=== PATIENT | female | born 1975 | race Caucasian/White ===

== ENCOUNTER 2017-11-20 06:08 | Inpatient (IN) ==
[~2017-11-20 06:08] MED LIST: CefOXitin Inj 2 GM in Sodium Chloride 0.9% 100 ML IV ONE; LIDOCAINE W/ SODIUM BICARB 0.5 ML SYR ONE; LIDOCAINE W/ SODIUM BICARB 0.5 ML SYR SUBD ONE; Lactated Ringers 2,000 ML PRIMARY IV ONE; Sodium Chloride 0.9% 100 ML IV ONE
[2017-11-20 06:35] LABS: BILIRUBIN,URINE NEGATIVE (NEG); CLARITY,URINE CLEAR (CLEAR); COLOR,URINE YELLOW (Y); GLUCOSE, URINE (UA) NEGATIVE (NEG); OCCULT BLOOD,URINE NEGATIVE (NEG); PH,URINE >=9.0 (5.0-8.5); PROTEIN,URINE TRACE mg/dl (NEG); UROBILINOGEN,URINE 0.2 EU/dL (0.2)
[2017-11-20 06:37] LABS: URINE SAMPLE TYPE CLEAN CATCH URINE
[2017-11-20 06:39] LABS: URINE SPECIFIC GRAVITY - MAN 1.015
[2017-11-20] MEDS: Lactated Ringers 1,000 ML PRIMARY IV SCH ×2 (06:47→06:58)
[2017-11-20 06:52] LABS: Hematocrit [HCT] 41.3 % (37.0-47.0); Hemoglobin [HGB] 13.9 g/dL (12.0-16.0)
[2017-11-20] MEDS ORDERED: ROCURONIUM 10 MG/1 ML - 5 ML VIAL IVP ONE (07:12)
[2017-11-20] MEDS ORDERED: LIDOCAINE MPF 2% - 5 ML (20 MG/1 ML) ONE (07:14)
[2017-11-20] MEDS ORDERED: MIDAZOLAM 5 MG/1 ML ONE (07:14)
[2017-11-20] MEDS ORDERED: fentaNYL Inj 250 MCG/5 ML VIAL ONE (07:14)
[2017-11-20] MEDS ORDERED: PROPOFOL 10 MG/1 ML (200 MG/20 ML) VIAL IV ONE (07:14)
[2017-11-20] MEDS ORDERED: LIDOCAINE HCL 2 % 10 ML JELLY URO-JECT TOPICAL ONE ×2 (07:24→09:17)
[2017-11-20] MEDS ORDERED: BUPivacaine 0.5%/Epi Inj 50 ML VIAL ONE (07:24)
[2017-11-20] MEDS ORDERED: HYDROmorphone 2 MG/1 ML ONE ×2 (08:23→11:25)
[2017-11-20] MEDS ORDERED: Opium-Belladonna 60-16.2mg 1 EACH SUPP.RECT RECTAL ONE ×2 (08:43→12:10)
[2017-11-20] MEDS ORDERED: KETAMINE 100 MG/1 ML - 5 ML ONE (08:54)
[2017-11-20] MEDS ORDERED: Lactated Ringers 1,000 ML PRIMARY IV ONE ×3 (09:20→11:42)
[2017-11-20] MEDS ORDERED: ONDANSETRON 4 MG/2 ML VIAL ONE (09:36)
[2017-11-20] MEDS ORDERED: KETOROLAC 30 MG/1 ML VIAL ONE (09:36)
[2017-11-20] MEDS ORDERED: SUGAMMADEX SODIUM 200 MG/2 ML VIAL IV ONE (11:12)
[2017-11-20] MEDS ORDERED: FUROSEMIDE 10 MG/1 ML - 4 ML ONE (12:51)
[2017-11-20] MEDS ORDERED: Ondansetron ODT Tab 8 MG TAB PO PRN (13:07)
[2017-11-20] MEDS ORDERED: IBUPROFEN 800 MG TABLET PO PRN (13:07)
[2017-11-20] MEDS ORDERED: KETOROLAC 15 MG/1 ML VIAL IVP PRN (13:07)
[2017-11-20] MEDS ORDERED: NORMAL SALINE 10 ML SYRINGE FLUSH IVP PRN ×2 (13:07→13:17)
--- NOTE | 2017-11-20 13:14 | OB.OP.NOTE ---
Operative Report Surgeon: Dacia Certified Optician: Raheel Espino MD Anesthesia Type: General Anesthesia Provider: Son Li CRNA Surgery Date: 11/20/17 Preoperative Diagnosis: SPR/BRIE Postoperative Diagnosis: Same Procedure: Robotic Supracervical Hysterectomy/Bilateral Salpingectomy/Left Oophorectomy/TVT-O/Perineorrhaphy/Cystoscopy Estimated Blood Loss (mL): 150 Fluids: 4000 ml Complications: None identified. Findings at Surgery: Normal size uterus. Normal tubes. Right ovary with 2.5 cm follicular cyst. Left ovary with bivalved appearance. Large rectocele/enterocele. Cystocele. Uterine descent. The liver edge, stomach, visualized bowel, appendix, and pelvic peritoneum appeared normal. No visible evidence of bowel, bladder, or ureter injury. Good vaginal support without tension was achieved. Good placement of TVT mesh without tension was achieved. At cysto, both ureters ejected urine and the bladder was intact. Indications for the Procedure: SPR/BRIE Description of Procedure: See dictated operative report. Plan: 24 hour observation, then home.
[2017-11-20] MEDS ORDERED: ONDANSETRON 4 MG/2 ML VIAL IVP PRN (13:17)
[2017-11-20] MEDS ORDERED: LIDOCAINE W/ SODIUM BICARB 0.5 ML SYR SUBD PRN (13:17)
[2017-11-20] MEDS ORDERED: fentaNYL Inj 100 MCG/2 ML VIAL IVP PRN (13:17)
--- NOTE | 2017-11-20 13:29 | CRNA.PROGR ---
Anesthesia Recovery Phase I - Post Anesthesia Evaluation Patient's Condition on Arrival in Phase I: Stable Pain Level: 3
--- NOTE | 2017-11-20 13:30 | CRNA.PROGR ---
Anesthesia Time - - Start date: 11/20/17 End date: 11/20/17 - Procedure/Recovery Time Anesthesia : Time In: 07:49 Anesthesia : Time Out: 13:12 Anesthesia : Total Time: 323 - Total Anesthesia Time Total Anesthesia Time (minutes): 323 - Other Weight: 105.687 kg Height: 5 ft 8 in Body Mass Index (BMI): 35.4 Physical Status: P2 Anesthesia Type: General Anesthesia : ET
[2017-11-20] MEDS: HYDROmorphone 2 MG/1 ML IVP PRN ×2 (13:35→14:25)
[2017-11-20] MEDS: HYDROcodone-APAP 5 MG -325 MG TABLET PO PRN ×2 (16:05→20:43)
[2017-11-20 20:26] VITALS: RESP 18
[2017-11-20] MEDS: DOCUSATE 100 MG CAPSULE PO SCH (20:43)
[2017-11-21] MEDS: Lactated Ringers 1,000 ML PRIMARY IV SCH ×2 (00:50→13:06)
[2017-11-21] MEDS: HYDROcodone-APAP 5 MG -325 MG TABLET PO PRN ×4 (00:50→13:06)
[2017-11-21 07:18] VITALS: O2SAT 96
[2017-11-21] MEDS: DOCUSATE 100 MG CAPSULE PO SCH (08:41)
--- NOTE | 2017-11-21 08:41 | PDOC(PROG) ---
Subjective Post Op Day: 1 Pain Management: PO Meadows Catheter: Yes Flatus: Yes Diet: Regular Ambulating: Yes Concerns / Additional Information: The patient had a quiet night. She is having some discomfort which is well- managed with PO meds. Will remove meadows and verify bladder function before discharge. Assesstment / Plan Assessment / Plan: POD 1, doing well. Voiding trial, then home.
--- NOTE | 2017-11-21 08:43 | DCSUMMARY ---
Hospitalization Summary Admit Date: 11/20/17 Discharge Date: 11/21/17 Primary Diagnosis:: SPR/BRIE Hospital Course: Uncomplicated robotic hysterectomy/left oophorectomy/bilateral salpingectomy/ sacral colpopexy/TVT-O/and perineorrhaphy. Observed overnight. Discharge to home POD 1 in good condition. F/u 2 weeks. Exam - Vitals Vital Signs: Vital Signs Temperature 97.2 F Temperature Source Temporal Artery Scan Pulse Rate [Apical] 60 Pulse Rate [Pulse Oximeter] 63 Pulse Rate 55 Respiratory Rate 18 Blood Pressure [Right Arm] 110/72 Blood Pressure 121/78 Pulse Ox 96 Oxygen Flow Rate 1 Oxygen Delivery Method Nasal Cannula Height 5 ft 8 in Weight 241 lb
[2017-11-21 11:34] VITALS: BP 140/70; TEMP 97.4
== END 2017-11-21 15:15 | disposition home or self-care (01) | DRG 743 ==
LOC: OPS 06:08 → MED/SURG 14:21
PROVIDERS: ADMIT Obstetrics & Gynecology; ATTEND Obstetrics & Gynecology